=== PATIENT | male | born 1960 | race Caucasian/White ===

== ENCOUNTER → 2019-09-05 11:53 | Outpatient (CLI) | payer BC, SELFPAY ==
--- NOTE | ~2019-09-05 | CT_ITS ---
EXAMINATION: CT chest abdomen pelvis w con DATE: 09/05/2019 13:01 INDICATION: Colorectal cancer with liver metastases TECHNIQUE: Transaxial computed tomographic images of the chest, abdomen, and pelvis were obtained aft er the administration of 100 cc of Omnipaque 350 intravenous contrast. The dose-length product (DLP) was 1415.18 mGy-cm. Automated exposure control and iterative reconstruction technique were employed. COMPARISON: 05/03/2019, 11/24/2018, 03/18/2018 FINDINGS: CHEST CT: The lungs are free of acute opacities. There is no pleural effusion or pneumothorax. No suspicious pu lmonary nodules are identified. A left subclavian Port-A-Cath ends with its tip in the proximal super ior vena cava. There is no pleural effusion or pneumothorax. No pathologically enlarged thoracic lymp h nodes are identified. The heart size is normal. ABDOMEN/PELVIS CT: A 1.5 x 1.2 cm mass in liver segment II measured 2.6 x 2.3 cm on the most recent comparison examinati on. There is a 1.8 x 1.6 cm area of low attenuation in liver segment Ashly on image 121. The gallbladde r is surgically absent. The spleen, pancreas, and adrenal glands are normal. Hypoattenuating lesions in the kidneys, measuring up to 7 mm on the right, are too small to characterize but likely represent cysts. No pathologically enlarged abdominal or pelvic lymph nodes are identified. There is no free i ntraperitoneal gas or evidence of bowel obstruction. A surgical staple line is noted in the rectum. C olonic diverticulosis is present without evidence of diverticulitis. The appendix is normal. There is mild lumbar spondylosis. IMPRESSION: 1. Interval decrease in size of a suspected metastasis in liver segment II. 2. New indeterminate low-attenuation area of liver segment Ashly, metastatic disease is a consideration . Attention on follow-up examinations is recommended. 3. No evidence of metastatic disease in the chest. Reviewed, dictated and finalized at location A. ICE UPHOLSTERER IMPRESSION: 1. Interval decrease in size of a suspected metastasis in liver segment II. 2. New indeterminate low-attenuation area of liver segment Ashly, metastatic dise ase is a consideration. Attention on follow-up examinations is recommended. 3. No evidence of metastatic disease in the chest.
[2019-09-05 12:44] LABS: Blood Urea Nitrogen 5 mg/dL (8-26); Estimated Glomerular Filt Rate > 60
== END ==
PROVIDERS: PCP Internal Medicine; Visit Provider Internal Medicine
DX: R97.0 Elevated carcinoembryonic antigen [CEA] (principal); C19 Malignant neoplasm of rectosigmoid junction
CPT/HCPCS: 71260; 74177; Q9967

== ENCOUNTER → 2020-03-03 08:37 | Outpatient (CLI) | payer BC, SELFPAY ==
--- NOTE | ~2020-03-03 | CT_ITS ---
EXAMINATION: CT chest abdomen pelvis w con EXAM DATE: 03/03/2020 09:56 INDICATION: Colorectal cancer. TECHNIQUE: Spiral CT of the chest, abdomen and pelvis was performed following intravenous injection o f 100 mL Omnipaque 350. Axial, coronal and sagittal images were reviewed. Coronal maximum intensity pixel images of chest reviewed. The dose-length product (DLP) for this examination was 1463.47 mGy- cm. The exposure was tailored according to patient size (auto mA exposure control), and iterative re construction (ASIR) was used as additional dose reduction technique. Comparison is made to prior exam ination from 09/05/2019. FINDINGS: CHEST: The lungs are clear. There are no pleural or pericardial effusions. Tracheobronchial tree is patent. There is no mediastinal, hilar or axillary lymphadenopathy. There is no pneumothorax. Heart normal in size. There is mild coronary arterial calcification, arterial sclerosis. There is left-sided Chemo-Port. ABDOMEN PELVIS: Patient has had portion of the left liver lobe lateral segment resected. There is a h ypodensity in segment IVb measuring 2.2 cm (previously measured 1.4). Hypodensity in segment 8 measur ing 2.3 cm, new compared to prior study. There is also a more geographic wedge shaped hypodensity in segment 7 at the dome measuring 1.6 x 4.0 cm. Could be metastatic lesions. Gallbladder not identified , patient likely has had cholecystectomy. Adrenal glands, spleen, pancreas are unremarkable. Portal and splenic veins are patent. Kidneys enhance symmetrically. There is no hydronephrosis. The pros gr is unremarkable. Small right inguinal fat-containing hernia. The bladder is unremarkable. Ther e is no retroperitoneal or pelvic lymphadenopathy. There is mild scattered arteriosclerotic disease . Interval laparotomy. The appendix is normal. The stomach and small bowel are unremarkable. There is mild sigmoid colonic diverticulosis. There is no adjacent inflammatory change to suggest diverticulitis. Rectosigmoid an astomosis site. No free intraperitoneal gas. There are no osteoblastic or osteolytic lesions iden tified. IMPRESSION: 1. Interval partial left liver hepatectomy. 2. Increase in size of previously seen liver lesion. 3. 2 new indeterminate liver regions which could be metastatic. Reviewed, dictated and finalized at location A.
[2020-03-03 09:37] LABS: Estimated Glomerular Filt Rate > 60
== END ==
PROVIDERS: PCP Internal Medicine; Visit Provider Internal Medicine
DX: C19 Malignant neoplasm of rectosigmoid junction (principal); C78.7 Secondary malignant neoplasm of liver and intrahepatic bile duct; Z98.890 Other specified postprocedural states
CPT/HCPCS: 71260; 74177; Q9967

== ENCOUNTER → 2020-07-07 08:08 | Outpatient (CLI) | payer BC, SELFPAY ==
--- NOTE | ~2020-07-07 | CT_ITS ---
EXAMINATION: CT chest abdomen pelvis w con DATE: 07/07/2020 08:40 INDICATION: Rectal cancer with hepatic metastasis TECHNIQUE: Computed tomography (CT) of the chest, abdomen, and pelvis was performed with 100 cc Omnip aque 350 intravenous contrast. Automated exposure control and iterative reconstruction technique were employed. Exam dose: 1367.87 mGy-cm total exam DLP. COMPARISON: 03/03/2020 CT chest abdomen pelvis FINDINGS: CHEST CT: Normal heart size. Coronary artery calcifications. No pericardial or pleural effusion. No thoracic aortic aneurysm or dissection. No hilar or mediastinal mass lesion or lymphadenopathy. Left Port-A-Cath catheter in superior vena cava. No pulmonary infiltrate or consolidation or pulmonary mass lesion is detected. ABDOMEN/PELVIS CT: Status post cholecystectomy. Partial left hepatic resection. Approximately 2.3 cm right hepatic mass. Again noted is focal peripheral hypoattenuation at the posterolateral right hepatic dome. No other definite hepatic space-occupying mass lesion is evident No bile duct or pancreatic duct dilatation. No pancreatic mass lesion or calcification. Normal spleni c size. Normal morphology of the adrenal glands. No renal mass lesion is evident. No urinary tract calculus or hydroureteronephrosis. The urinary blad kervin is unremarkable. Prostate enlargement and calcifications. Small fat-containing right inguinal hernia. There is a suture line at the rectosigmoid area. Occasional diverticula of the sigmoid and transverse colon; no CT evidence of diverticulitis. Normal appendix. No bowel obstruction, bowel wall thickening, pneumatosis or intraperitoneal free air. Normal caliber of the abdominal aorta. No intraperitoneal or retroperitoneal or pelvic mass lesion or adenopathy or ascites. There is mild degenerative spurring of the thoracic spine. Severe degenerative disc disease at L4-5. No suspicious osteolytic or osteoblastic lesions. IMPRESSION: Postoperative change of the rectosigmoid area and partial hepatic resection Stable or improved likely hepatic metastatic disease since 03/03/2020. Reviewed, dictated and finalized at [facility]. Reviewed, dictated and finalized at location A. MACHINE OPERATOR
[2020-07-07 08:29] LABS: Estimated Glomerular Filt Rate > 60
== END ==
PROVIDERS: PCP Internal Medicine; Visit Provider Internal Medicine
DX: C20 Malignant neoplasm of rectum (principal); C78.7 Secondary malignant neoplasm of liver and intrahepatic bile duct
CPT/HCPCS: 71260; 74177; Q9967

== ENCOUNTER 2020-09-15 14:46 | Outpatient (CLI) | payer BC, SELFPAY | END 2020-09-15 14:47 | disposition home or self-care (01) | LOC: ANHCOVIDVC 14:46 | PROVIDERS: PCP Internal Medicine | DX: Z23 Encounter for immunization (principal) | CPT/HCPCS: 0001A; 91300 ==

== ENCOUNTER 2020-10-06 14:41 | Outpatient (CLI) | payer BC, SELFPAY | END 2020-10-06 14:42 | disposition home or self-care (01) | LOC: ANHCOVIDVC 14:41 | PROVIDERS: PCP Internal Medicine | DX: Z23 Encounter for immunization (principal) | CPT/HCPCS: 0002A; 91300 ==

== ENCOUNTER → 2021-06-18 08:03 | Outpatient (CLI) | payer BC, SELFPAY ==
--- NOTE | ~2021-06-18 | CT_ITS ---
EXAMINATION: CT diagnostic chest w con DATE: 06/18/2021 08:41 INDICATION: Metastatic colorectal cancer TECHNIQUE: Transaxial computed tomographic images of the chest were obtained after the administration of 75 cc of Omnipaque 350 intravenous contrast. The dose-length product (DLP) was 613.09 mGy-cm. Ite rative reconstruction was used. COMPARISON: 07/07/2020 FINDINGS: A left subclavian Port-A-Cath ends with its tip in the proximal superior vena cava. The puja gs are free of focal airspace opacities. There is mild dependent atelectasis. No pathologically enlar ged thoracic lymph nodes are identified. The heart size is normal. There is calcified coronary artery atherosclerosis. There is mild thoracic spondylosis. Changes of partial left hepatectomy are noted. IMPRESSION: 1. No acute cardiopulmonary abnormality. Reviewed, dictated and finalized at location A. ANALYTICS SPECIALIST
[2021-06-18 08:26] LABS: Estimated Glomerular Filt Rate > 60
== END ==
PROVIDERS: PCP Internal Medicine; Visit Provider Internal Medicine
DX: C19 Malignant neoplasm of rectosigmoid junction (principal); C78.7 Secondary malignant neoplasm of liver and intrahepatic bile duct; M47.814 Spondylosis without myelopathy or radiculopathy, thoracic region; I25.10 Atherosclerotic heart disease of native coronary artery without angina pectoris
CPT/HCPCS: 71260; Q9967

== ENCOUNTER 2021-11-03 07:32 | Outpatient (CLI) | payer BC, SELFPAY ==
--- NOTE | ~2021-11-03 | PE_ITS ---
EXAMINATION: PET skull to mid thigh DATE: 11/03/2021 09:36 INDICATION: Colorectal cancer with metastases to the liver. TECHNIQUE: Blood glucose level was 76 mg/dL. 9.052 mCi of 18-fluorodeoxyglucose (18-FDG) was administ ered i.v. Low dose computed tomography (CT) images were acquired from the base of the brain to the pr oximal thighs for attenuation correction and anatomic localization. Positron emission tomography (PET ) images were acquired in the same distribution beginning 62 minutes after injection. Images includin g fused PET/CT images were reconstructed in axial, coronal, and sagittal planes. Automated exposure c ontrol technique was employed. The dose-length product was 708.89mGy-cm. COMPARISON: CT chest dated 06/18/[address] chest, abdomen and pelvis dated 07/07/2020 FINDINGS: Head/neck: There is symmetric increased activity in the oral cavity and ocular muscles without CT correlate, lik alka physiologic. No pathologically enlarged cervical lymphadenopathy or suspicious foci of increased FDG uptake in the visualized head or neck. Chest: Left subclavian central venous port catheter with distal tip at the midsuperior vena cava. Lungs are clear with no suspicious pulmonary nodules, pneumonia, pulmonary edema or pleural effusion. Heart siz e is normal. No pericardial effusion. Thoracic aorta is normal in caliber. No pathologically enlarged or FDG avid thoracic lymphadenopathy. Abdomen/pelvis/proximal thighs: Increased FDG uptake with maximal SUV of 6.5 so she with a subtle approximately 2 cm hypodense mass i n segment 8 of the right hepatic lobe which is suspicious for metastatic disease. Likely prior partia l hepatectomy with suture line along the lateral margin of the left hepatic lobe. Physiologic renal a ccumulation and excretion of FDG activity in the kidneys, bladder and along portions of ureters. Chol ecystectomy clips at the gallbladder fossa. Spleen, pancreas and bilateral adrenal glands are normal. Mild uptake scattered throughout the bowels without radiologic correlate, also likely physiologic. A nastomotic suture line at the rectosigmoid junction likely related to prior partial colectomy. Prosta tomegaly. No other abnormal foci of increased FDG uptake or pathologically enlarged lymphadenopathy i n the abdomen, pelvis or proximal thighs. Fat-containing right inguinal hernia. Musculoskeletal: Severe lower lumbar spondylosis. Mild to moderate spondylosis in the more cephalad lumbar, thoracic a nd cervical spine. No suspicious lytic, blastic or FDG avid bone lesions. Asymmetric fatty atrophy of the right tensor fascia brant muscle. IMPRESSION: 1. Moderate FDG uptake with maximal SUV of 6.5 is associated with an approximately 2 cm hypodense mas s in segment 8 of the right hepatic lobe consistent with metastatic disease. No other lesions suspici ous for metastases identified. Reviewed, dictated and finalized at location B. IMPRESSION: 1. Moderate FDG uptake with maximal SUV of 6.5 is associated with an approximat alka 2 cm hypodense mass in segment 8 of the right hepatic lobe consistent with metastatic disease. No other lesions suspicious for metastases identified.
[2021-11-03 08:06] LABS: Glucose Point of Care 76 mg/dl (65-105)
== END 2021-11-03 07:33 | disposition home or self-care (01) ==
LOC: ANHIMG 07:34
PROVIDERS: PCP Internal Medicine; Visit Provider Internal Medicine
DX: C19 Malignant neoplasm of rectosigmoid junction (principal)
CPT/HCPCS: 78815; A9552

== ENCOUNTER → 2022-07-19 13:15 | Outpatient (CLI) | payer BC, SELFPAY ==
--- NOTE | ~2022-07-19 | CT_ITS ---
EXAMINATION:CT diagnostic chest w con DATE: 07/19/2022 13:46 INDICATION: Colorectal cancer. TECHNIQUE: Computed tomography (CT) of the chest was performed with 75 mL Omnipaque 350 intravenous c ontrast. Automated exposure control and iterative reconstruction technique were employed. The dose-le ngth product (DLP) was 368.82 mGy-cm. COMPARISON: Chest CT 06/18/2021, PET/CT 11/03/21 FINDINGS: There is chronic elevation of right hemidiaphragm. There is mild atelectasis in right middl e lobe and right lower lobe. No pleural effusion. There is a left subclavian port with tip in superio r vena cava. The heart size is normal. There are coronary artery calcifications. No pericardial effus ion. There are changes of cholecystectomy. There are 3 low-attenuation masses in the liver. The large st mass measures 4.8 x 3.5 cm in right hepatic lobe. Adjacent high density material is likely from ch emoembolization. There is mild thoracic spondylosis. IMPRESSION: 1. Worsened liver masses, consistent with metastatic disease with changes of chemoembolization. Reviewed, dictated and finalized at location A. S OPERATOR ASSISTANT IMPRESSION: 1. Worsened liver masses, consistent with metastatic disease with changes of ch emoembolization.
[2022-07-19 13:37] LABS: Estimated Glomerular Filt Rate > 60
== END ==
PROVIDERS: PCP Internal Medicine; Visit Provider Internal Medicine
DX: C19 Malignant neoplasm of rectosigmoid junction (principal); C78.7 Secondary malignant neoplasm of liver and intrahepatic bile duct
CPT/HCPCS: 71260; Q9967

== ENCOUNTER → 2022-12-31 14:53 | Outpatient (CLI) | payer BC, SELFPAY ==
--- NOTE | ~2022-12-31 | CT_ITS ---
Clinical Indication: Metastatic cancer follow-up CT Scan of the Chest with Contrast: Technique: Contiguous sections were acquired throughout the chest after intravenous administration of 75 cc of Omnipaque 350. Dose reduction technique was used on this scan by utilizing automated exposu re control and iterative reconstruction technique. The dose-length product (DLP) was 529.81 mGy-cm. COMPARISON: 07/19/2022 Findings: There is no evidence of any significant mediastinal, hilar or axillary lymphadenopathy. Coronary jeff ry calcifications are present. Mediastinal soft tissues and vascular structures are otherwise unremar kable. There is no evidence of pleural or pericardial effusion. The lungs there is a mild bibasilar atelectatic change. No suspicious pulmonary nodule seen. Images through the upper abdomen reveal stable low-attenuation hepatic masses with areas of periphera l hyperdense material along the margins of the lesions.. Impression: Stable low-attenuation hepatic masses with peripheral hyperdense material, suggestive of metastatic l esions which are status post chemoembolization treatment. Correlate with treatment history. No significant abnormality in the lung/chest. Reviewed, dictated and finalized at location . Impression: Stable low-attenuation hepatic masses with peripheral hyperdense material, sugg estive of metastatic lesions which are status post chemoembolization treatment. Correlate with treatment history. No significant abnormality in the lung/chest.
[2022-12-31 15:20] LABS: Estimated Glomerular Filt Rate > 60
== END ==
PROVIDERS: PCP Internal Medicine; Visit Provider Internal Medicine
DX: C19 Malignant neoplasm of rectosigmoid junction (principal); C78.7 Secondary malignant neoplasm of liver and intrahepatic bile duct
CPT/HCPCS: 71260; Q9967

== ENCOUNTER 2023-12-20 08:30 | Outpatient (CLI) | payer BC, SELFPAY ==
--- NOTE | ~2023-12-20 | CT_ITS ---
Clinical Indication: Metastatic colon cancer CT Scan of the Chest with Contrast: Technique: Contiguous sections were acquired throughout the chest after intravenous administration of 75 cc of Omnipaque 350. Dose reduction technique was used on this scan by utilizing automated exposu re control and iterative reconstruction technique. The dose-length product (DLP) was 378.02 mGy-cm. COMPARISON: 12/31/2022 Findings: There is no evidence of any significant mediastinal, hilar or axillary lymphadenopathy. There is no f illing defect in the pulmonary arterial tree to suggest pulmonary embolus. There is no evidence of ao rtic dissection or aneurysm. There is no evidence of pleural or pericardial effusion. The lungs are clear. No pulmonary nodules or infiltrates are noted. Images through the upper abdomen reveal stable probable postoperative changes of liver. There are sta ble hyperdense masses with peripheral calcification, which could reflect treated metastatic lesions.. Impression: No evidence of metastatic disease in the chest. Stable hepatic metastatic disease, possibly treated disease. Reviewed, dictated and finalized at [facility]. Impression: No evidence of metastatic disease in the chest. Stable hepatic metastatic disease, possibly treated disease.
[2023-12-20 09:02] LABS: Estimated Glomerular Filt Rate > 60
== END 2023-12-20 08:31 ==
PROVIDERS: PCP Nurse Practitioner
DX: C19 Malignant neoplasm of rectosigmoid junction (principal); C78.7 Secondary malignant neoplasm of liver and intrahepatic bile duct
CPT/HCPCS: 71260; Q9967

== ENCOUNTER 2024-03-01 10:13 | Outpatient (CLI) | payer BC, SELFPAY ==
--- NOTE | ~2024-03-01 | PE_ITS ---
EXAMINATION: PET skull to mid thigh DATE: 03/01/2024 13:09 INDICATION: Colorectal cancer with hepatic metastasis TECHNIQUE: Blood glucose level was 104 mg/dL. 9.742 mCi of 18-fluorodeoxyglucose (18-FDG) was adminis tered i.v. Low dose computed tomography (CT) images were acquired from the base of the brain to the p roximal thighs for attenuation correction and anatomic localization. Positron emission tomography (PE T) images were acquired in the same distribution beginning 54 minutes after injection. Images includi ng fused PET/CT images were reconstructed in axial, coronal, and sagittal planes. Automated exposure control technique was employed. The dose-length product was 1186.30mGy-cm. COMPARISON: 11/03/2021 FINDINGS: Head/neck: There is symmetric increased activity in the oral cavity, palatine tonsils, laryngeal muscles and ocu lar muscles without CT correlate, likely physiologic. No pathologically enlarged cervical lymphadenop athy or suspicious foci of increased FDG uptake in the visualized head or neck. Chest: Left subclavian central venous port catheter with distal tip at the mid superior vena cava. There is elevation of right hemidiaphragm with associated right basilar atelectasis. No suspicious pulmonary n odules, pneumonia, pulmonary edema or pleural effusion. Mild cardiomegaly. Atherosclerotic coronary a rtery calcium. No pericardial effusion. Thoracic aorta is normal in caliber. No pathologically enlarg ed or FDG avid thoracic lymphadenopathy. Abdomen/pelvis/proximal thighs: Physiologic renal accumulation and excretion of FDG activity in the kidneys, bladder and along portio ns of ureters. Cholecystectomy clips in the gallbladder fossa. The pancreas, spleen and bilateral adr enal glands are normal. Prior partial hepatectomy suture line along the left lateral margin of the left hepatic lobe. There a re new calcific densities at the periphery of previously FDG avid, currently photopenic hypodense mas s in segment 8 of the liver. There is an additional photopenic defect and peripheral calcification at a second hypodense mass anteriorly in segment 7 of the liver. This would be consistent with positive treatment, potentially chemoembolization of prior metastatic disease. There are a couple new subtle hypodense FDG avid masses in the left hepatic lobe, the larger and more anterior in segment 3 measure s approximately 2 cm with maximum SUV of 16.7 and the second in segment 2 on the anterior margin of t he inferior vena cava measuring approximately 1.5 cm with maximum SUV of 7.7. Mild uptake scattered throughout the bowels without radiologic correlate, also likely physiologic. Po stoperative changes of prior partial colectomy with rectosigmoid anastomotic suture line. Normal appe ndix. Prostatomegaly. No other abnormal foci of increased FDG uptake or pathologically enlarged lymph adenopathy in the abdomen, pelvis or proximal thighs. Musculoskeletal: No suspicious lytic, blastic or FDG avid bone lesions. IMPRESSION: 1. A couple new FDG avid masses in the left hepatic lobe consistent with recurrent metastatic disease . 2. A couple photopenic defects associated with hypodense masses in the right hepatic lobe, one of whi ch demonstrate increased FDG uptake on prior study likely representing interval response to treatment such as chemoembolization of earlier metastatic disease. Correlate with clinical history. Reviewed, dictated and finalized at location A. IMPRESSION: 1. A couple new FDG avid masses in the left hepatic lobe consistent with recurr ent metastatic disease. 2. A couple photopenic defects associated with hypodense masses in the right he patic lobe, one of which demonstrate increased FDG uptake on prior study likely representing interval response to treatment such a
[2024-03-01 11:09] LABS: Glucose Point of Care 104 mg/dl (65-105)
== END 2024-03-01 10:14 | disposition home or self-care (01) ==
PROVIDERS: PCP Nurse Practitioner; Visit Provider Internal Medicine
DX: C19 Malignant neoplasm of rectosigmoid junction (principal); C78.7 Secondary malignant neoplasm of liver and intrahepatic bile duct; C78.6 Secondary malignant neoplasm of retroperitoneum and peritoneum
CPT/HCPCS: 78815; A9552

== ENCOUNTER 2024-06-22 08:39 | Outpatient (CLI) | payer BC, SELFPAY ==
--- NOTE | ~2024-06-22 | CT_ITS ---
Clinical Indication: Colon cancer CT Scan of the Chest, Abdomen, and Pelvis with Contrast: Technique: Contiguous sections were acquired throughout the chest, abdomen, and pelvis after intraven ous administration of 100 cc of Omnipaque 350. Dose reduction technique was used on this scan by uti lizing automated exposure control and iterative reconstruction technique. The dose-length product (DL P) was 1021.82 mGy-cm. Comparison: PET/CT dated 03/01/2024 Findings: There is no evidence of any significant mediastinal, hilar or axillary lymphadenopathy. The mediastin al soft tissues appear normal. There is no evidence of pleural or pericardial effusion. The lungs are clear. No pulmonary nodules or infiltrates are noted. Stable hypodense masses peripherally in the right hepatic lobe with coarse peripheral areas of calcif ication. Findings could reflect treated metastatic lesions. There is background diffuse hepatic steat osis. There is a new hypodense lesion centrally in the liver measuring 17 mm in diameter (axial image 1 1 for example), indeterminate. The spleen, pancreas, gallbladder, adrenals and kidneys are within normal limits. No evidence of aortic aneurysm. No lymphadenopathy. No bowel obstruction or bowel wall thickening. Rectosigmoid anastomosis noted. Urinary bladder is unremarkable. No pelvic mass seen. Prostate gland mildly enlarged. No ascites. Impression: New 17 mm lobulated/irregular hypodense lesion in the central liver. Given patient history, this coul d represent metastatic lesion. Recommend pre and postcontrast MR to further evaluate. No definite les ions seen in the left hepatic lobe to correlate with the hypermetabolic lesion seen on prior PET/CT Stable probable treated metastatic lesions peripherally in the right hepatic lobe. Diffuse background hepatic steatosis. No other significant findings. Reviewed, dictated and finalized at [facility]. LE HYPERION CONSULTANT Impression: New 17 mm lobulated/irregular hypodense lesion in the central liver. Given cade ent history, this could represent metastatic lesion. Recommend pre and postcont rast MR to further evaluate. No definite lesions seen in the left hepatic lobe to correlate with the hypermetabolic lesion seen on prior PET/CT Stable probable treated metastatic lesions peripherally in the right hepatic lo be. Diffuse background hepatic steatosis. No other significant findings.
[2024-06-22 09:06] LABS: Estimated Glomerular Filt Rate > 60
== END 2024-06-22 08:40 | disposition home or self-care (01) ==
PROVIDERS: PCP Nurse Practitioner; Visit Provider Internal Medicine
DX: C18.9 Malignant neoplasm of colon, unspecified (principal); C78.7 Secondary malignant neoplasm of liver and intrahepatic bile duct; K76.0 Fatty (change of) liver, not elsewhere classified
CPT/HCPCS: 71260; 74177; Q9967

== ENCOUNTER 2024-07-12 10:18 | Outpatient (CLI) | payer BC, SELFPAY ==
--- NOTE | ~2024-07-12 | PE_ITS ---
EXAMINATION: PET skull to mid thigh DATE: 07/12/2024 12:41 INDICATION: Colon cancer. TECHNIQUE: Blood glucose level was 108 mg/dL. 10.360 mCi of 18-fluorodeoxyglucose (18-FDG) was admini stered i.v. Low dose computed tomography (CT) images were acquired from the base of the brain to the proximal thighs for attenuation correction and anatomic localization. Automated exposure control was employed. Dose-length product (DLP) was 1041 mGy-cm. Positron emission tomography (PET) images were a cquired in the same distribution. COMPARISON: PET/CT 03/01/2024, 06/22/24 FINDINGS: Head/neck: There are no pathologically enlarged lymph nodes. Chest: The lungs demonstrate mild atelectasis. There is chronic elevation of right hemidiaphragm. No pleural effusion. The heart size is normal. There are coronary artery calcifications. No pericardial effusion. There is a left subclavian port with tip in superior vena cava. Abdomen/pelvis/proximal thighs: There are 3 masses in the liver with peripheral calcifications with d ecreased activity relative to normal liver. A consumer sales representative mass in right hepatic lobe measures 3.3 x 2.7 cm. These masses are better seen on the recent abdomen and pelvis CT. There is diffuse hepatic steatosis. Focal decreased attenuation in the liver adjacent to the hilum without increased activity is likely focal worse steatosis. The spleen, pancreas, adrenal glands, and kidneys are normal. The pr ostate is moderately enlarged. There is a right inguinal hernia containing fat. There are no dilated loops of bowel. The appendix is normal. There are no pathologically enlarged lymph nodes. There is no free intraperitoneal fluid. There is no osseous malignancy. IMPRESSION: 1. Three peripherally calcified masses in the liver with decreased activity without change in size fr om 03/01/24, consistent with treated metastatic disease. Reviewed, dictated and finalized at location A. LUBE OPERATOR IMPRESSION: 1. Three peripherally calcified masses in the liver with decreased activity wit hout change in size from 03/01/24, consistent with treated metastatic disease.
[2024-07-12 10:50] LABS: Glucose Point of Care 108 mg/dl (65-105)
== END 2024-07-12 10:19 | disposition home or self-care (01) ==
PROVIDERS: PCP Nurse Practitioner; Visit Provider Internal Medicine
DX: C19 Malignant neoplasm of rectosigmoid junction (principal); C78.6 Secondary malignant neoplasm of retroperitoneum and peritoneum; C78.7 Secondary malignant neoplasm of liver and intrahepatic bile duct; G62.0 Drug-induced polyneuropathy; T45.1X5A Adverse effect of antineoplastic and immunosuppressive drugs, initial encounter
CPT/HCPCS: 78815; A9552

== ENCOUNTER 2025-03-18 12:45 | Outpatient (CLI) | payer BC, SELFPAY ==
--- NOTE | ~2025-03-18 | CT_ITS ---
EXAMINATION: CT chest abdomen pelvis w con DATE: 03/18/2025 13:29 INDICATION: Colorectal cancer. TECHNIQUE: Computed tomography (CT) of the chest, abdomen, and pelvis was performed with 100 mL Omnipaque 350 intravenous contrast. Automated exposure control and iterative reconstruction technique were employed. The dose-length product was 848.72 mGy-cm. COMPARISON: CT 06/22/2024, 07/07/2020, PET/CT 07/12/24 FINDINGS: CHEST CT: The lungs demonstrate mild atelectasis. No pleural effusion. The heart size is normal. There are coronary artery calcifications. No pericardial effusion. There is a left subclavian port with tip in superior vena cava. There is moderate thoracic spondylosis. ABDOMEN/PELVIS CT: Again seen are 2 peripheral hypodense masses in right hepatic lobe with marginal staple lines, likely changes of mass resection. There is a peripheral staple line in left hepatic lobe. There is a 10 mm peripheral hypodense mass in segment VII of the liver. There are changes of cholecystectomy. The spleen, pancreas, and adrenal glands are normal. There are cysts in the kidneys measuring up to 5 mm on the left. The prostate is moderately enlarged. There is a right inguinal hernia containing fat. There are no dilated loops of bowel. The appendix is normal. There are no pathologically enlarged lymph nodes. There is no free intraperitoneal fluid. There is severe lumbar spondylosis. IMPRESSION: 1. 10 mm liver mass, stable from 06/22/2024 and new from 07/07/2021. No increased activity on PET on 07/12/24. This finding is indeterminate for metastatic disease. Reviewed, dictated and finalized at location E. IMPRESSION: 1. 10 mm liver mass, stable from 06/22/2024 and new from 07/07/2021. No increas ed activity on PET on 07/12/24. This finding is indeterminate for metastatic dise ase.
[2025-03-18 13:14] LABS: Estimated Glomerular Filt Rate > 60
== END 2025-03-18 12:46 | disposition home or self-care (01) ==
LOC: MICIMG 12:46
PROVIDERS: PCP Nurse Practitioner; Visit Provider Internal Medicine
DX: G62.0 Drug-induced polyneuropathy (principal); T45.1X5A Adverse effect of antineoplastic and immunosuppressive drugs, initial encounter; C19 Malignant neoplasm of rectosigmoid junction; C78.7 Secondary malignant neoplasm of liver and intrahepatic bile duct
CPT/HCPCS: 71260; 74177; Q9967